=== PATIENT | male | born 1940 | race Caucasian/White ===

== ENCOUNTER → 2016-11-17 | Outpatient (CLI) | payer MEDICARE | LOC: KOH-I 15:08 | DX: R05 Cough (principal); J43.9 Emphysema, unspecified; J98.4 Other disorders of lung | CPT/HCPCS: 71020 ==

== ENCOUNTER → 2017-01-03 | Outpatient (CLI) | payer MEDICARE, OTHER | LOC: KOH-I 10:00 | DX: R05 Cough (principal); J43.9 Emphysema, unspecified; J98.4 Other disorders of lung | CPT/HCPCS: 71260; Q9962 ==

== ENCOUNTER 2020-11-06 11:41 | Inpatient (IN) | payer MEDICARE, OTHER ==
[~2020-11-06] VITALS: Ht 180.3 cm; Wt 49.9 kg
[2020-11-06 13:40] LABS: RED BLOOD COUNT 4.58 M/UL (4.20-5.50); WHITE BLOOD COUNT 16.3 K/UL (4.5-11.0)
[2020-11-06 14:05] LABS: BUN/CREATININE RATIO 19 (0-10)
[2020-11-06] MEDS ORDERED: METOPROLOL SUCC50 MG PO (23:19)
[2020-11-06] MEDS ORDERED: LISINOPRIL5 MG PO (23:19)
[2020-11-06] MEDS ORDERED: OMEPRAZOLE40 MG PO (23:19)
[2020-11-06] MEDS ORDERED: BREO ELLIPTA 21 EACH INH (23:20)
[2020-11-06] MEDS ORDERED: IPRAT-ALBUT 0.5-3 ML INH (23:20)
[2020-11-06] MEDS ORDERED: AMITRIPTYLINE H25 MG PO (23:21)
[2020-11-06] MEDS ORDERED: LIPITOR20 MG PO (23:21)
[2020-11-06] MEDS ORDERED: ALLERGY RELIEF10 M1 PO (23:21)
[2020-11-06] MEDS ORDERED: PEG3350510 GM PO (23:22)
[2020-11-07 07:01] LABS: HEMOGLOBIN 11.2 gm/dl (14.0-17.5); RED BLOOD COUNT 4.49 M/UL (4.20-5.50)
[2020-11-07 07:26] LABS: BUN/CREATININE RATIO 20 (0-10)
[2020-11-08 04:49] LABS: WHITE BLOOD COUNT 17.7 K/UL (4.5-11.0)
[2020-11-08 04:50] LABS: HEMOGLOBIN 9.2 gm/dl (14.0-17.5); RED BLOOD COUNT 3.7 M/UL (4.20-5.50)
[2020-11-08 05:11] LABS: BUN/CREATININE RATIO 24 (0-10)
[2020-11-09 04:46] LABS: HEMOGLOBIN 9.6 gm/dl (14.0-17.5); RED BLOOD COUNT 3.87 M/UL (4.20-5.50)
[2020-11-09 05:07] LABS: BUN/CREATININE RATIO 28 (0-10)
[2020-11-10 06:25] LABS: HEMOGLOBIN 9.7 gm/dl (14.0-17.5); RED BLOOD COUNT 3.98 M/UL (4.20-5.50); WHITE BLOOD COUNT 14.7 K/UL (4.5-11.0)
[2020-11-10 06:36] LABS: BUN/CREATININE RATIO 25 (0-10)
--- NOTE | 2020-11-10 14:51 | NUR ---
1405 Attempts x 2 to each nare to place dobhoff tube per Beth Rodriguez RN. Tube met resistance after inserting approximately [address] Boothe called to inform & maybe need to be placed per OR. Dr Boothe stated she would decide.
[2020-11-11 04:37] LABS: HEMOGLOBIN 10.9 gm/dl (14.0-17.5); WHITE BLOOD COUNT 11.2 K/UL (4.5-11.0)
[2020-11-11 04:38] LABS: RED BLOOD COUNT 4.42 M/UL (4.20-5.50)
[2020-11-11 04:49] LABS: BUN/CREATININE RATIO 22 (0-10)
[2020-11-12 05:02] LABS: HEMOGLOBIN 10.2 gm/dl (14.0-17.5); RED BLOOD COUNT 4.12 M/UL (4.20-5.50); WHITE BLOOD COUNT 9.4 K/UL (4.5-11.0)
[2020-11-12 05:18] LABS: BUN/CREATININE RATIO 21 (0-10)
[2020-11-13 06:02] LABS: HEMOGLOBIN 10.1 gm/dl (14.0-17.5); RED BLOOD COUNT 4.07 M/UL (4.20-5.50)
[2020-11-13 06:06] LABS: WHITE BLOOD COUNT 6.2 K/UL (4.5-11.0)
[2020-11-13 06:23] LABS: BUN/CREATININE RATIO 21 (0-10)
[2020-11-14 03:35] LABS: BUN/CREATININE RATIO 21 (0-10)
[2020-11-15 03:47] LABS: HEMOGLOBIN 9.9 gm/dl (14.0-17.5); RED BLOOD COUNT 4.03 M/UL (4.20-5.50)
[2020-11-15 03:51] LABS: WHITE BLOOD COUNT 8.8 K/UL (4.5-11.0)
[2020-11-15 04:06] LABS: BUN/CREATININE RATIO 24 (0-10)
[2020-11-16 04:29] LABS: HEMOGLOBIN 10.2 gm/dl (14.0-17.5); RED BLOOD COUNT 4.13 M/UL (4.20-5.50); WHITE BLOOD COUNT 7.8 K/UL (4.5-11.0)
[2020-11-16 05:02] LABS: BUN/CREATININE RATIO 20 (0-10)
[2020-11-17 06:02] LABS: HEMOGLOBIN 10.4 gm/dl (14.0-17.5); RED BLOOD COUNT 4.18 M/UL (4.20-5.50)
[2020-11-17 06:03] LABS: WHITE BLOOD COUNT 14.9 K/UL (4.5-11.0)
[2020-11-17 06:23] LABS: BUN/CREATININE RATIO 25 (0-10)
[2020-11-19 09:51] LABS: HEMOGLOBIN 10.3 gm/dl (14.0-17.5); RED BLOOD COUNT 4.08 M/UL (4.20-5.50)
[2020-11-19 10:00] LABS: WHITE BLOOD COUNT 22.5 K/UL (4.5-11.0)
[2020-11-19 10:17] LABS: BUN/CREATININE RATIO 36 (0-10)
[2020-11-20 08:21] LABS: HEMOGLOBIN 9.1 gm/dl (14.0-17.5); RED BLOOD COUNT 3.69 M/UL (4.20-5.50)
[2020-11-20 08:24] LABS: WHITE BLOOD COUNT 15.6 K/UL (4.5-11.0)
[2020-11-20 09:22] LABS: BUN/CREATININE RATIO 37 (0-10)
[2020-11-21 03:45] LABS: HEMOGLOBIN 9.2 gm/dl (14.0-17.5); RED BLOOD COUNT 3.74 M/UL (4.20-5.50)
[2020-11-21 03:47] LABS: WHITE BLOOD COUNT 10.6 K/UL (4.5-11.0)
[2020-11-21 04:09] LABS: BUN/CREATININE RATIO 36 (0-10)
--- NOTE | 2020-11-21 08:57 | NUR ---
CALLED DR SUTHERLAND. PATIENTS HEART RATE IS TACHY IN THE 120'S TO 130'S. SHE ORDERED EKG AND LOPRESSOR 0.5MG ONCE.
[2020-11-22 05:53] LABS: HEMOGLOBIN 9.3 gm/dl (14.0-17.5); RED BLOOD COUNT 3.78 M/UL (4.20-5.50); WHITE BLOOD COUNT 8.5 K/UL (4.5-11.0)
[2020-11-22 06:30] LABS: BUN/CREATININE RATIO 37 (0-10)
[2020-11-23 03:28] LABS: HEMOGLOBIN 9.5 gm/dl (14.0-17.5); RED BLOOD COUNT 3.89 M/UL (4.20-5.50); WHITE BLOOD COUNT 8.4 K/UL (4.5-11.0)
[2020-11-23 03:54] LABS: BUN/CREATININE RATIO 33 (0-10)
--- NOTE | 2020-11-23 12:36 | NUR ---
CALLED DR. ROSE AT 1236 PERTAINING TO PATIENTS TACHYCARDIA RUNNING 115-125 WITH NO ANSWER.
--- NOTE | 2020-11-23 13:44 | NUR ---
PATIENTS FAMILY MEMBER ASKED FOR SUPPLIES TO CHANGE DRESSING FOR PATIENT. PATIENT ALSO STATES HE WAS ABLE TO URINATE IN THE TOILETTE BY HIMSELF. "I PISSED A FLOOD" PATIENT STATED ABOUT URINATING.
[2020-11-24 03:38] LABS: HEMOGLOBIN 8.6 gm/dl (14.0-17.5); WHITE BLOOD COUNT 8.1 K/UL (4.5-11.0)
[2020-11-24 03:45] LABS: RED BLOOD COUNT 3.5 M/UL (4.20-5.50)
[2020-11-24 04:00] LABS: BUN/CREATININE RATIO 35 (0-10)
[2020-11-24] MEDS ORDERED: LOPRESSOR 25 MG25 MG PO (11:05)
[2020-11-24] MEDS ORDERED: PULMICORT0.25 MG/1 INH (11:05)
[2020-11-24] MEDS ORDERED: ASPIRIN EC81 MG PO (11:05)
[2020-11-24] MEDS ORDERED: ZOSYN 3.373.375 GM/5 IV (11:05)
[2020-11-24] MEDS ORDERED: SPIRIVA18 MCG INH (11:11)
== END 2020-11-24 16:07 | disposition critical access hospital (66) | DRG 871 ==
LOC: ER1 11:41 → CDU 16:30 → MED SURG 4 16:30
PROVIDERS: Internal Medicine; Physician Assistant; ADMIT Family Medicine
PROC: 0DH68UZ Insertion of Feeding Device into Stomach, Via Natural or Artificial Opening Endoscopic (ICD-10-PCS; 2020-11-13)
PROC: B24BZZZ Ultrasonography of Heart with Aorta (ICD-10-PCS; principal; 2020-11-17)
PROC: 0DH68UZ Insertion of Feeding Device into Stomach, Via Natural or Artificial Opening Endoscopic (ICD-10-PCS; 2020-11-19)
DX: A41.9 Sepsis, unspecified organism (principal); J69.0 Pneumonitis due to inhalation of food and vomit; J96.21 Acute and chronic respiratory failure with hypoxia; J44.1 Chronic obstructive pulmonary disease with (acute) exacerbation; E87.0 Hyperosmolality and hypernatremia; E44.0 Moderate protein-calorie malnutrition; Z68.41 Body mass index [BMI] 40.0-44.9, adult; Z20.822 Contact with and (suspected) exposure to COVID-19; Z66 Do not resuscitate; R13.14 Dysphagia, pharyngoesophageal phase; K22.5 Diverticulum of esophagus, acquired; I25.10 Atherosclerotic heart disease of native coronary artery without angina pectoris; I10 Essential (primary) hypertension; D64.9 Anemia, unspecified; K59.00 Constipation, unspecified; H91.90 Unspecified hearing loss, unspecified ear; E83.52 Hypercalcemia; Z87.891 Personal history of nicotine dependence; Z95.1 Presence of aortocoronary bypass graft; Z79.899 Other long term (current) drug therapy; E78.5 Hyperlipidemia, unspecified; Z86.73 Personal history of transient ischemic attack (TIA), and cerebral infarction without residual deficits
CPT/HCPCS: ECHO; 0240U; 36415; 36600; 71045; 71046; 71250; 74230; 80048; 80053; 80202; 81001; 82330; 82550; 82553; 82803; 83605; 83735; 83874; 83880; 83970; 84100; 84439; 84443; 84484; 85025; 85027; 87040; 87070; 87081; 87086; 87205; 87635; 87880; 92610; 92611-GN; 93005; 93306; 94640; 94664; 94760; 97110-GP-CQ; 97116; 97116-GP-CQ; 97162; 97530; 97530-GP-CQ; 99284; J0692; J1650; J2250; J2543; J2920; J2930; J3010; J3370; J3486; J7030; J7040; J7070